=== PATIENT | female | born 1995 | race Two or more races ===

== ENCOUNTER 2016-08-12 09:48 | Emergency (ER) | payer MEDICAID ==
[~2016-08-12] VITALS: Ht 160 cm; Wt 45.4 kg
[2016-08-12] MEDS ORDERED: Metoclopramide 10mg/2ml Inj IVP ONE (10:00)
--- NOTE | 2016-08-12 10:07 | Emergency Room Report ---
History of Present Illness General Chief Complaint: Abdominal Pain Source: Patient, EMS Present Illness HPI Patient does with complains of increased nausea and vomiting Patient reports that she is approximately 14 weeks Since she was 8 weeks she has been reporting to her OB physician that she has been increasingly nauseated A nausea medicine today was not working and patient presents for further eval Denies any chest pain or shortness of breath denies any lower abdominal pain denies any vaginal bleeding or spotting this is her second Patient has a 2-year-old child She had some similar symptoms initially with the initial Allergies: Coded Allergies: No Known Allergies (Unverified , 08/12/16) Patient History Past Medical History: see triage record Pertinent Family History: none Now: Yes : 2 Para: 1 Reviewed Nursing Documentation: PMH: Agreed, PSxH: Agreed Nursing Documentation-PMH Past Medical History: No Stated History Review of Systems All Other Systems: negative except mentioned in HPI Physical Exam Vital Signs Date Time Temp Pulse Resp B/P Pulse Ox O2 Delivery O2 Flow Rate FiO2 08/12/16 09:44 98.2 90 18 97/60 98 Room Air Sp02 EP Interpretation: reviewed, normal General Appearance: mild distress - Actively nauseated Head: normocephalic, atraumatic Eyes: bilateral eye EOMI, bilateral eye PERRL ENT: hearing grossly normal, normal pharynx, TMs + canals normal, uvula midline Neck: full range of motion, supple, no meningismus, no bony tend Respiratory: lungs clear, normal breath sounds, no rhonchi, no respiratory distress, no retraction, no accessory muscle use Cardiovascular #1: normal peripheral pulses, regular rate, rhythm, no edema, no gallop, no JVD, no murmur Gastrointestinal: normal bowel sounds, non tender, soft, no mass, no organomegaly, non-distended, no guarding, no hernia, no pulsatile mass, no rebound Genitourinary: no CVA tenderness Musculoskeletal: normal inspection Neurologic: oriented x3, responsive, shipping checker III-XII nml as tested, motor strength/ tone normal, sensory intact Psychiatric: mood/affect normal Skin: normal color, no rash, warm/dry, palpation normal Lymphatic: normal inspection, no adenopathy Medical Decision Making Diagnostic Impression: Primary Impression: Vomiting complicating Additional Impressions: UTI (urinary tract infection) UTI (urinary tract infection) in in first trimester ER Course With the patient's history and examination, multiple differentials considered, including but not limited to , ectopic , ovarian torsion, gastritis, cholecystitis, pancreatitis, appendicitis Patient's urine sample did show evidence of UTI Ultrasounds otherwise appropriate Patient after prolonged observation and intervention in the ER continues to do better and is stable for initial conservative outpatient trial Labs Test 08/12/16 10:00 White Blood Count 5.4 K/UL (4.8-10.8) Red Blood Count 4.62 M/UL (4.20-5.40) Hemoglobin 14.2 G/DL (12.0-16.0) Hematocrit 42.6 % (37.0-47.0) Mean Corpuscular Volume 92 FL (80-99) Mean Corpuscular Hemoglobin 30.8 PG (27.0-31.0) Mean Corpuscular Hemoglobin Concent 33.3 G/DL (32.0-36.0) Red Cell Distribution Width 12.2 % (11.6-14.8) Platelet Count 245 K/UL (150-450) Mean Platelet Volume 8.4 FL (6.5-10.1) Neutrophils (%) (Auto) 78.1 % (45.0-75.0) Lymphocytes (%) (Auto) 17.5 % (20.0-45.0) Monocytes (%) (Auto) 4.0 % (1.0-10.0) Eosinophils (%) (Auto) 0.0 % (0.0-3.0) Basophils (%) (Auto) 0.3 % (0.0-2.0) Urine Color Pale yellow Urine Appearance Clear Urine pH 5 (4.5-8.0) Urine Specific [place] 1.030 (1.005-1.035) Urine Protein 2+ (NEGATIVE) Urine Glucose (UA) Negative (NEGATIVE) Urine Ketones 4+ (NEGATIVE) Urine Occult Blood Negative (NEGATIVE) Urine Nitrite Negative (NEGATIVE) Urine Bilirubin Negative (NEGATIVE) Urine Urobilinogen Normal MG/DL (0.0-1.0) Urine Leukocyte Esterase 2+ (NEGATIVE) Urine RBC 0-2 /HPF (0 - 2) Urine WBC 10-15 /HPF (0 - 2) Urine Squamous Epithelial Cells Few /LPF (NONE/OCC) Urine Bacteria Few /HPF (NONE) Urine Mucus Few /LPF (NONE/OCC) Sodium Level 133 mEQ/L (135-145) Potassium Level 3.9 mEQ/L (3.4-4.9) Chloride Level 94 mEQ/L (98-107) Carbon Dioxide Level 13 mEQ/L (20-30) Anion Gap 26 (5-15) Blood Urea Nitrogen 12 mg/dL (7-23) Creatinine 0.5 mg/dL (0.5-0.9) Estimat Glomerular Filtration Rate > 60 mL/min (>60) Glucose Level 59 mg/dL (74-106) Calcium Level 8.9 mg/dL (8.6-10.2) Total Bilirubin 0.5 mg/dL (0.0-1.2) Aspartate Amino Transf (AST/SGOT) 20 U/L (5-40) Alanine Aminotransferase (ALT/SGPT) 9 U/L (3-33) Alkaline Phosphatase 43 U/L (35-104) Total Protein 7.2 g/dL (6.6-8.7) Albumin 3.7 g/dL (3.5-5.2) Globulin 3.5 g/dL Albumin/Globulin Ratio 1.0 (1.0-2.7) Lipase 24 U/L (< 60) Human Chorionic Gonadotropin, Quant 47746 mIU/mL Urine Opiates Screen Negative (NEGATIVE) Urine Barbiturates Screen Negative (NEGATIVE) Phencyclidine (PCP) Screen Negative (NEGATIVE) Urine Amphetamines Screen Negative (NEGATIVE) Urine Benzodiazepines Screen Negative (NEGATIVE) Urine Cocaine Screen Negative (NEGATIVE) Urine Marijuana (THC) Screen Negative (NEGATIVE) CT/MRI/US Diagnostic Results CT/MRI/US Diagnostic Results : Impression pelvic ultrasound:Impression: 14 week 3 day, by visual shunt measurements, single live intrauterine . No unusual features Last Vital Signs Date Time Temp Pulse Resp B/P Pulse Ox O2 Delivery O2 Flow Rate FiO2 08/12/16 09:44 98.2 90 18 97/60 98 Room Air Status: improved Disposition: HOME, SELF-CARE Condition: Improved Scripts Metoclopramide Hcl* (REGLAN*) 5 Mg Tablet 5 MG ORAL EVERY 12 HOURS, #10 TAB Prov: BC HARO D.O. 08/12/16 Nitrofurantoin Monohyd/M-Cryst* (MACROBID 100 MG*) 100 Mg Capsule 100 MG ORAL EVERY 12 HOURS for 5 Days, CAP Prov: BC HARO D.O. 08/12/16 Additional Instructions: Patient is provided with the discharge instructions notified to follow up with primary doctor in the next 2-3 days otherwise return to the er with any worsening symptoms. Please note that this report is being documented using DRAGON technology. This can lead to erroneous entry secondary to incorrect interpretation by the dictating instrument. BC HARO D.O. Aug 12, 2016 10:07
[2016-08-12 10:14] VITALS: BP 99/60
[2016-08-12 10:14] LABS: BASOPHILS % (AUTO) 0.3 % (0.0-2.0); LYMPHOCYTES % (AUTO) 17.5 % (20.0-45.0); MEAN CORPUSCULAR HEMOGLOBIN 30.8 PG (27.0-31.0); MEAN CORPUSCULAR HGB CONC 33.3 G/DL (32.0-36.0); MEAN CORPUSCULAR VOLUME 92 FL (80-99); MEAN PLATELET VOLUME 8.4 FL (6.5-10.1); NEUTROPHILS % (AUTO) 78.1 % (45.0-75.0); PLATELET COUNT 245 K/UL (150-450); RED BLOOD COUNT 4.62 M/UL (4.20-5.40); RED CELL DISTRIBUTION WIDTH 12.2 % (11.6-14.8); WHITE BLOOD COUNT 5.4 K/UL (4.8-10.8)
[2016-08-12 10:19] LABS: APPEARANCE,URINE CLEAR; KETONES,URINE 4+ (NEGATIVE); LEUKOCYTE ESTERASE ,URINE 2+ (NEGATIVE); NITRITE,URINE NEGATIVE (NEGATIVE); PH,URINE 5 (4.5-8.0); PROTEIN,URINE 2+ (NEGATIVE); UROBILINOGEN,URINE NORMAL MG/DL (0.0-1.0)
[2016-08-12 10:25] LABS: ALANINE AMINOTRANSFERASE 9 U/L (3-33); ANION GAP 26 (5-15); ASPARTATE AMINO TRANSFERASE 20 U/L (5-40); CALCIUM 8.9 mg/dL (8.6-10.2); CARBON DIOXIDE 13 mEQ/L (20-30); CHLORIDE 94 mEQ/L (98-107); CREATININE 0.5 mg/dL (0.5-0.9); GLOMERULAR FILTRATION RATE > 60 mL/min (>60); HEMOLYSIS 3; LIPASE 24 U/L (< 60); POTASSIUM 3.9 mEQ/L (3.4-4.9); SODIUM 133 mEQ/L (135-145); TOTAL PROTEIN 7.2 g/dL (6.6-8.7)
[2016-08-12 10:30] LABS: BACTERIA,URINE FEW /HPF; MUCUS,URINE FEW /LPF (NONE/OCC); RBC,URINE 0-2 /HPF (0 - 2); SQUAMOUS EPITHELIAL CELL,UR FEW /LPF (NONE/OCC)
[2016-08-12 11:15] VITALS: BP 92/50
[2016-08-12] MEDS ORDERED: cefTRIAXone 1 GM in NS 55 ML IVPB ONE (11:30)
[2016-08-12] MEDS ORDERED: NITROFURANTOIN100 M2 ORAL (13:00)
[2016-08-12] MEDS ORDERED: REGLAN5 MG ORAL (13:01)
[2016-08-12 13:18] VITALS: BP 101/53
[2016-08-12 13:21] VITALS: BP 101/53
--- NOTE | 2016-08-12 14:43 | Diagnostic Imaging Report ---
Indication: Pelvic pain, 14 weeks Technique: Transabdominal images of the gravid uterus Comparison: None Findings: Uterus measures 11.3 cm length by 9.6 cm AP. Within the endometrium is a gestational sac. This contains a single live intrauterine . There is an upper fundal and anterior placenta. Grossly normal amniotic fluid volume. No evidence of previa. Cervix is closed, measures 2.7 cm in length. Positive heart activity, heart rate 139 beats for minute Renal measurements as follows: Kamas-rump length 88 mm, 14 weeks 5 days; biparietal diameter 25 mm, 14 weeks 2 days; head circumference 98 mm, 14 weeks 4 days; abdominal circumference 85 mm, 14 weeks 5 days. Estimated gestational age by average of ultrasound measurements is 14 weeks 3 days. Estimated gestational age by dates is 14 weeks 4 days. Estimated date of delivery 02/07/2017. Limited survey of anatomy is unremarkable. Normal bladder, spine, heart, three-vessel cord, cord insertion, stomach are noted. Impression: 14 week 3 day, by visual shunt measurements, single live intrauterine . No unusual features
== END 2016-08-12 13:21 | disposition home or self-care (01) ==
LOC: EDBD 09:48 → EMR 10:40
DX: O21.9 Vomiting of pregnancy, unspecified (principal); O23.41 Unspecified infection of urinary tract in pregnancy, first trimester; Z3A.14 14 weeks gestation of pregnancy
CPT/HCPCS: 36415; 76805; 80053; 80300; 81003; 83690; 84702; 85025; 87086; 96360; 96361; 96374; 96375; 99284; J0696; J2765